=== PATIENT | female | born 1975 | race Caucasian/White ===

== ENCOUNTER 2020-12-20 17:10 | Emergency (ER) | payer BC ==
[2020-12-20] MEDS ORDERED: Ondansetron 4 MG Tab.DIS PO ONE (17:37)
[2020-12-20] MEDS ORDERED: GI Cocktail Oral Solution 30 ML PO ONE (17:37)
--- NOTE | 2020-12-20 17:42 | EDM.PDOC ---
ED HPI GENERAL MEDICAL PROBLEM - General Chief Complaint: Gastrointestinal Problem Stated Complaint: ABDOMINAL PAIN Time Seen by Provider: 12/20/20 17:30 Source of Information: Reports: Patient History Limitations: Reports: No Limitations - History of Present Illness INITIAL COMMENTS - FREE TEXT/NARRATIVE: This patient presents to the emergency department for evaluation of abdominal pain. She reports the pain started approximately 3-1/2 hours ago and is in her epigastric region. She states that she had some pain yesterday that was similar but lasted only about an hour. This is lasted longer and is "sharper" than it was yesterday. She is also complaining of some nausea and had 1 vomiting episode this afternoon. She has not had any diarrhea and states she had a segundo l stool this morning. She has been eating and drinking, she denies fever. She does not have periods and has an IUD in place. ED ROS GENERAL - Review of Systems Review Of Systems: See Below Constitutional: Denies: Fever, Decreased Appetite HEENT: Reports: No Symptoms Respiratory: Reports: No Symptoms Cardiovascular: Reports: No Symptoms GI/Abdominal: Reports: Abdominal Pain, Nausea, Vomiting. Denies: Diarrhea : Reports: No Symptoms Musculoskeletal: Reports: No Symptoms Skin: Reports: No Symptoms Neurological: Reports: No Symptoms ED EXAM, GI/ABD - Physical Exam Exam Limited By: No Limitations General Appearance: Alert, No Apparent Distress Ears: Normal External Exam Nose: Normal Inspection Throat/Mouth: Normal Inspection Head: Atraumatic, Normocephalic Neck: Normal Inspection Respiratory/Chest: No Respiratory Distress, Normal Breath Sounds, No Accessory Muscle Use GI/Abdominal Exam: Normal Bowel Sounds, Soft, Non-Tender, No Organomegaly, No Distention, Hernia (Has had hernia repair in the past, now has a small hernia right upper quadrant) Course - Orders/Labs/Meds Orders: Active Orders 24 hr Category Date Time Status EKG Documentation Completion [RC] ASDIRECTED Care 12/20/20 17:38 Ordered GI Cocktail Med 12/20/20 17:37 Once 30 ml PO ONETIME ONE Ondansetron [Zofran ODT] Med 12/20/20 17:37 Once 4 mg PO ONETIME ONE EKG 12 Lead [EK] Stat Ther 12/20/20 17:37 Ordered Departure - Discharge Information - My Orders Last 24 Hours: My Active Orders 12/20/20 17:37 GI Cocktail 30 ml PO ONETIME ONE Ondansetron [Zofran ODT] 4 mg PO ONETIME ONE EKG 12 Lead [EK] Stat 12/20/20 17:38 EKG Documentation Completion [RC] ASDIRECTED - Assessment/Plan Last 24 Hours: My Active Orders 12/20/20 17:37 GI Cocktail 30 ml PO ONETIME ONE Ondansetron [Zofran ODT] 4 mg PO ONETIME ONE EKG 12 Lead [EK] Stat 12/20/20 17:38 EKG Documentation Completion [RC] ASDIRECTED
[2020-12-20] MEDS ORDERED: Sodium Chloride 0.9% 10 ML Syringe FLUSH PRN (18:23)
[2020-12-20] MEDS ORDERED: Iopamidol 612 MG/ML 100 ML Bottle IV PRN (18:35)
[2020-12-20] MEDS ORDERED: Sodium Chloride 0.9% 50 ML SDV FLUSH SCH (18:45)
[2020-12-20] MEDS ORDERED: Ketorolac 60 MG/2 ML SDV IM ONE (19:13)
[2020-12-20] MEDS ORDERED: Ketorolac 60 MG/2 ML SDV ONE (19:19)
[2020-12-20] MEDS ORDERED: Morphine 4 MG/ML VIAL IVPUSH ONE (19:36)
[2020-12-20] MEDS ORDERED: Sodium Chloride 0.9% 1,000 ML IV ONE (19:36)
[2020-12-20] MEDS ORDERED: Morphine 4 MG/ML VIAL ONE (19:50)
--- NOTE | 2020-12-20 20:15 | EDM.PDOC ---
ED HPI GENERAL MEDICAL PROBLEM - General Chief Complaint: Gastrointestinal Problem Stated Complaint: ABDOMINAL PAIN Time Seen by Provider: 12/20/20 17:30 Source of Information: Reports: Patient History Limitations: Reports: No Limitations - History of Present Illness INITIAL COMMENTS - FREE TEXT/NARRATIVE: This patient presents to the emergency department for evaluation of abdominal pain. She reports the pain started approximately 3-1/2 hours ago and is in her epigastric region. She states that she had some pain yesterday that was similar but lasted only about an hour. This is lasted longer and is "sharper" than it was yesterday. She is also complaining of some nausea and had 1 vomiting episode this afternoon. She has not had any diarrhea and states she had a segundo l stool this morning. She has been eating and drinking, she denies fever. She does not have periods and has an IUD in place. She does have a large umbilical hernia and she has had this repaired in the past, most recently in September 2019. Onset: Today Epigastric Pain Score (Numeric/FACES): 7 - Related Data Allergies Allergy/AdvReac Type Severity Reaction Status Date / Time latex Allergy Anaphylactic Verified 12/20/20 21:48 Shock Home Meds: Home Meds Albuterol [Ventolin HFA] 8 gm INH Q4HR PRN 12/20/20 [History] Fluticasone Propion/Salmeterol [Advair 250-50 Diskus] 1 each IH BID 12/20/20 [History] Montelukast [Singulair] 10 mg PO DAILY 12/20/20 [History] Past Medical History [employer]IN[employer] History: Reports: - Past Surgical History GI Surgical History: Reports: Bariatric Procedure, Hernia, Abdominal Social & Family History - Family History Family Medical History: No Pertinent Family History - Tobacco Use Tobacco Use Status *Q: Never Tobacco User - Caffeine Use Caffeine Use: Reports: Coffee - Recreational Drug Use Recreational Drug Use: No ED ROS GENERAL - Review of Systems Review Of Systems: See Below Constitutional: Reports: Decreased Appetite. Denies: Fever, Weight Loss, Weight Gain HEENT: Reports: No Symptoms Respiratory: Reports: No Symptoms Cardiovascular: Reports: No Symptoms Endocrine: Reports: No Symptoms GI/Abdominal: Reports: Abdominal Pain, Decreased Appetite, Distension, Nausea, Vomiting. Denies: Diarrhea : Reports: No Symptoms Musculoskeletal: Reports: No Symptoms Skin: Reports: No Symptoms Neurological: Reports: No Symptoms ED EXAM, GI/ABD - Physical Exam Exam: See Below Exam Limited By: No Limitations General Appearance: Alert, Severe Distress, Obese Ears: Normal External Exam Nose: Normal Inspection Throat/Mouth: Normal Inspection Head: Atraumatic, Normocephalic Neck: Normal Inspection, Supple, Full Range of Motion Respiratory/Chest: No Respiratory Distress, Lungs Clear, Normal Breath Sounds, No Accessory Muscle Use Cardiovascular: Normal Peripheral Pulses, Regular Rate, Rhythm GI/Abdominal Exam: Soft, No Distention, Tender (Significant tenderness in left upper quadrant; palpable mass approximately 10 x 12 cm which is soft and nondisplaceable.), Other (No bowel sounds in all 4 quadrants.) Extremities: Normal Inspection Neurological: Alert, Oriented Psychiatric: Normal Affect, Anxious ED ABDOMINAL/GI PROCEDURES - Additional/Other Procedure(s) Procedure(s) (Free Text): CT scan was obtained and does reveal a large umbilical hernia with loops of bowel and strands of fat with some omentum. There is possibly a small bowel obstruction as a part of this as well. Course - Vital Signs Last Recorded V/S: Last Vital Signs Temp 37.6 C 12/21/20 04:45 Pulse 87 12/21/20 04:45 Resp 18 12/21/20 04:45 BP 151/93 H 12/21/20 04:45 Pulse Ox 96 12/21/20 04:45 - Orders/Labs/Meds Orders: Active Orders 24 hr Category Date Time Status Iopamidol [Isovue-300 (61%)] Med 12/20/20 18:35 Active 100 ml IV . DIRECTED PRN LORazepam [Ativan] Med 12/20/20 20:23 Active 2 mg IVPUSH Q6H PRN Morphine Med 12/20/20 20:22 Active 6 mg IV Q3H PRN NS + KCl 20mEq/L [Normal Saline with 20 mEq KCl] 1,000 Med 12/20/20 21:45 Active ml IV ASDIRECTED Ondansetron [Zofran] Med 12/20/20 20:22 Active 4 mg IVPUSH Q4H PRN Sodium Chloride 0.9% [Normal Saline] Med 12/20/20 18:45 Active 50 ml FLUSH ONETIME Sodium Chloride 0.9% [Normal Saline] 1,000 ml Med 12/20/20 20:30 Active IV ASDIRECTED Sodium Chloride 0.9% [Normal Saline] 1,000 ml Med 12/20/20 21:45 Active IV ASDIRECTED Sodium Chloride 0.9% [Saline Flush] Med 12/20/20 18:23 Active 10 ml FLUSH ASDIRECTED PRN NG [Nasogastric Orogastric Tube Insertion] [OM.PC] Ot 12/20/20 20:15 Ordered Routine Saline Lock Insert [OM.PC] Stat Ot 12/20/20 18:23 Ordered Medication Orders Sodium Chloride (Normal Saline) 1,000 mls @ 999 mls/hr IV ASDIRECTED [facility] Last Admin: 12/20/20 21:37 Dose: 999 mls/hr Documented by: DIRK Sodium Chloride (Normal Saline) 1,000 mls @ 1,000 mls/hr IV ASDIRECTED [facility] Last Admin: 12/21/20 05:46 Dose: 1,000 mls/hr Documented by: DIRK Potassium Chloride/Sodium Chloride (Normal Saline With 20 Meq Kcl) 1,000 mls @ 150 mls/hr IV ASDIRECTED [facility] Last Admin: 12/20/20 22:52 Dose: 150 mls/hr Documented by: DIRK Iopamidol (Iopamidol 612 Mg/Ml 100 Ml Bottle) 100 ml IV . DIRECTED PRN PRN Reason: RADIOLOGY EXAM Stop: 12/21/20 18:36 Lorazepam (Lorazepam 2 Mg/Ml Sdv) 2 mg IVPUSH Q6H PRN PRN Reason: Anxiety Last Admin: 12/20/20 21:33 Dose: 2 mg Documented by: DIRK Morphine Sulfate (Morphine 10 Mg/Ml Sdv) 6 mg IV Q3H PRN PRN Reason: Pain Last Admin: 12/21/20 08:20 Dose: 6 mg Documented by: Admin: 12/21/20 04:27 Dose: 6 mg Documented by: Admin: 12/21/20 01:07 Dose: 4 mg Documented by: Admin: 12/20/20 21:03 Dose: 6 mg Documented by: DIRK Ondansetron HCl (Ondansetron 4 Mg/2 Ml Sdv) 4 mg IVPUSH Q4H PRN PRN Reason: Nausea/Vomiting Last Admin: 12/21/20 02:37 Dose: 4 mg Documented by: Admin: 12/20/20 21:10 Dose: 4 mg Documented by: DIRK Sodium Chloride (Sodium Chloride 0.9% 10 Ml Syringe) 10 ml FLUSH ASDIRECTED PRN PRN Reason: Keep Vein Open Sodium Chloride (Sodium Chloride 0.9% 50 Ml Sdv) 50 ml FLUSH ONETIME JIGNESH Labs: Laboratory Tests 12/20/20 12/20/20 12/20/20 Range/Units 20:07 21:00 21:00 WBC 18.1 H (4.0-11.0) K/uL RBC 5.20 (3.80-5.80) M/uL Hgb 14.3 (11.5-16.5) g/dL Hct 43.3 (37.0-47.0) % MCV 83 (76-96) fL MCH 27.5 (27.0-32.0) pg MCHC 33.0 (31.0-35.0) g/dL RDW 16.0 (11.0-16.0) % Plt Count 285 (150-500) K/uL MPV 10.1 H (6.0-10.0) fL Neut % (Auto) 92.1 H (45.0-70.0) % Lymph % (Auto) 5.4 L (20.0-40.0) % [place] % (Auto) 2.4 L (3.0-10.0) % Eos % (Auto) 0.0 L (1.0-5.0) % Baso % (Auto) 0.1 (0.0-0.5) % Neut # (Auto) 16.71 H (2.00-7.50) K/uL Lymph # (Auto) 0.98 L (1.50-4.00) K/uL [place] # (Auto) 0.43 (0.20-0.80) K/uL Eos # (Auto) 0.00 L (0.04-0.40) K/uL Baso # (Auto) 0.01 L (0.02-0.10) K/uL Sodium 138 (136-145) mmol/L Potassium 4.5 (3.5-5.1) mmol/L Chloride 104 (98-107) mmol/L Carbon Dioxide 27.1 (21.0-32.0) mmol/L Anion Gap 11.4 (5.0-15.0) mmol/L BUN 10 (8-26) mg/dL Creatinine 0.83 (0.55-1.02) mg/dL Est Cr Clr Drug Dosing 72.36 mL/min Estimated GFR (MDRD) > 60 (>60) MLS/MIN BUN/Creatinine Ratio 12.0 (6-25) Glucose 150 H (74-100) mg/dL Calcium 8.5 (8.5-10.1) mg/dL Total Bilirubin 0.3 (0.0-1.0) mg/dL AST 21 (15-37) U/L ALT 31 (12-78) U/L Alkaline Phosphatase 125 H (46-116) U/L Total Protein 7.3 (6.4-8.2) g/dL Albumin 3.7 (3.4-5.0) g/dL Globulin 3.6 (2.2-4.2) g/dL Albumin/Globulin Ratio 1.0 (0.8-2.0) SARS-CoV-2 RNA (LANDY) Negative (NEGATIVE) 12/21/20 Range/Units 09:45 WBC 14.1 H D (4.0-11.0) K/uL RBC 4.96 (3.80-5.80) M/uL Hgb 13.7 (11.5-16.5) g/dL Hct 41.8 (37.0-47.0) % MCV 84 (76-96) fL MCH 27.6 (27.0-32.0) pg MCHC 32.8 (31.0-35.0) g/dL RDW 16.4 H (11.0-16.0) % Plt Count 274 (150-500) K/uL MPV 10.0 (6.0-10.0) fL Neut % (Auto) 83.9 H (45.0-70.0) % Lymph % (Auto) 7.4 L (20.0-40.0) % [place] % (Auto) 8.5 (3.0-10.0) % Eos % (Auto) 0.1 L (1.0-5.0) % Baso % (Auto) 0.1 (0.0-0.5) % Neut # (Auto) 11.84 H (2.00-7.50) K/uL Lymph # (Auto) 1.04 L (1.50-4.00) K/uL [place] # (Auto) 1.20 H (0.20-0.80) K/uL Eos # (Auto) 0.01 L (0.04-0.40) K/uL Baso # (Auto) 0.01 L (0.02-0.10) K/uL Sodium (136-145) mmol/L Potassium (3.5-5.1) mmol/L Chloride (98-107) mmol/L Carbon Dioxide (21.0-32.0) mmol/L Anion Gap (5.0-15.0) mmol/L BUN (8-26) mg/dL Creatinine (0.55-1.02) mg/dL Est Cr Clr Drug Dosing mL/min Estimated GFR (MDRD) (>60) MLS/MIN BUN/Creatinine Ratio (6-25) Glucose (74-100) mg/dL Calcium (8.5-10.1) mg/dL Total Bilirubin (0.0-1.0) mg/dL AST (15-37) U/L ALT (12-78) U/L Alkaline Phosphatase (46-116) U/L Total Protein (6.4-8.2) g/dL Albumin (3.4-5.0) g/dL Globulin (2.2-4.2) g/dL Albumin/Globulin Ratio (0.8-2.0) SARS-CoV-2 RNA (LANDY) (NEGATIVE) Meds: Medications Generic Name Dose Route Start Last Admin Trade Name Freq PRN Reason Stop Dose Admin Sodium Chloride 1,000 mls @ 999 mls/hr 12/20/20 20:30 12/20/20 21:37 Normal Saline IV 999 mls/hr ASDIRECTED JIGNESH Administration Sodium Chloride 1,000 mls @ 1,000 mls/hr 12/20/20 21:45 12/21/20 05:46 Normal Saline IV 1,000 mls/hr ASDIRECTED JIGNESH Administration Potassium Chloride/Sodium Chloride 1,000 mls @ 150 mls/hr 12/20/20 21:45 12/20/20 22:52 Normal Saline With 20 Meq Kcl IV 150 mls/hr ASDIRECTED JIGNESH Administration Iopamidol 100 ml 12/20/20 18:35 Iopamidol 612 Mg/Ml 100 Ml Bottle IV 12/21/20 18:36 . DIRECTED PRN RADIOLOGY EXAM Lorazepam 2 mg 12/20/20 20:23 12/20/20 21:33 Lorazepam 2 Mg/Ml Sdv IVPUSH 2 mg Q6H PRN Administration Anxiety Morphine Sulfate 6 mg 12/20/20 20:22 12/21/20 08:20 Morphine 10 Mg/Ml Sdv IV 6 mg Q3H PRN Administration Pain Ondansetron HCl 4 mg 12/20/20 20:22 12/21/20 02:37 Ondansetron 4 Mg/2 Ml Sdv IVPUSH 4 mg Q4H PRN Administration Nausea/Vomiting Sodium Chloride 10 ml 12/20/20 18:23 Sodium Chloride 0.9% 10 Ml Syringe FLUSH ASDIRECTED PRN Keep Vein Open Sodium Chloride 50 ml 12/20/20 18:45 Sodium Chloride 0.9% 50 Ml Sdv FLUSH ONETIME JIGNESH Discontinued Medications Generic Name Dose Route Start Last Admin Trade Name Freq PRN Reason Stop Dose Admin Al Hydroxide/Mg Hydroxide 30 ml 12/20/20 17:37 12/20/20 17:40 Gi Cocktail Oral Solution 30 Ml PO 12/20/20 17:38 30 ml ONETIME ONE Administration Sodium Chloride 1,000 mls @ 999 mls/hr 12/20/20 19:36 12/20/20 19:41 Normal Saline IV 12/20/20 20:36 999 mls/hr ASDIRECTED ONE Administration Ketorolac Tromethamine Confirm 12/20/20 19:19 12/20/20 19:49 Ketorolac 60 Mg/2 Ml Sdv Administered 12/20/20 19:20 Not Given Dose 60 mg .ROUTE .STK-MED ONE Ketorolac Tromethamine 60 mg 12/20/20 19:13 12/20/20 19:10 Ketorolac 60 Mg/2 Ml Sdv IM 12/20/20 19:14 60 mg ONETIME ONE Administration Lorazepam Confirm 12/20/20 21:42 12/20/20 21:37 Lorazepam 2 Mg/Ml Sdv Administered 12/20/20 21:43 Not Given Dose 2 mg .ROUTE .STK-MED ONE Morphine Sulfate 4 mg 12/20/20 19:36 12/20/20 19:43 Morphine 4 Mg/Ml Vial IVPUSH 12/20/20 19:37 4 mg ONETIME ONE Administration Morphine Sulfate Confirm 12/20/20 19:50 12/20/20 19:49 Morphine 4 Mg/Ml Vial Administered 12/20/20 19:51 Not Given Dose 4 mg .ROUTE .STK-MED ONE Morphine Sulfate Confirm 12/20/20 21:12 12/20/20 21:25 Morphine 10 Mg/Ml Sdv Administered 12/20/20 21:13 Not Given Dose 10 mg .ROUTE .STK-MED ONE Ondansetron HCl 4 mg 12/20/20 17:37 12/20/20 17:43 Ondansetron 4 Mg Tab.Dis PO 12/20/20 17:38 4 mg ONETIME ONE Administration Ondansetron HCl Confirm 12/20/20 21:20 12/20/20 21:15 Ondansetron 4 Mg/2 Ml Sdv Administered 12/20/20 21:21 Not Given Dose 4 mg .ROUTE .STK-MED ONE - Re-Assessments/Exams Free Text/Narrative Re-Assessment/Exam: 12/20/20 20:13 This patient presents to the ER with a sudden onset of abdominal pain. She does have a history of hernia and there does appear to be a large incarcerated umbilical hernia. I did contact [facility] in [place] where the surgeon is that repaired her hernia in 2019. I spoke with his partner Dr. Solis at great length regarding the management of this patient. He suggested we manage her here using a conservative approach including fluid resuscitation, NG drainage and decompression, and pain management as well as serial abdominal exams. Free Text/Narrative Re-Assessment/Exam: 12/21/20 09:37 Patient continues to state her abdominal pain is approximately 6-7 out of 10. Bowel sounds are absent and she remains mildly distended. Hernia area is palpable mostly in the right upper quadrant and is approximately 10 x 12 cm. NG tube is draining small amounts of frothy clear secretions. Her pain is being controlled fairly well with morphine which she has been getting regularly. A repeat CBC is pending. Free Text/Narrative Re-Assessment/Exam: 12/21/20 12:41 Patient status unchanged and continues to complain of abdominal pain at 6-7 out of 10. I just spoke with Dr. Solis at [facility] who did agree to accept this patient in transfer. Arrangements were made for her transfer to their facility by helicopter. The patient was stable at the time she was transferred by [facility] [employer] [facility]. 12/21/20 12:56 Departure - Departure Time of Disposition: 13:45 Disposition: DC/Tfer to [facility] 02 Condition: Fair Clinical Impression: Hernia, Small bowel obstruction - Discharge Information *PRESCRIPTION DRUG MONITORING PROGRAM REVIEWED*: No *COPY OF PRESCRIPTION DRUG MONITORING REPORT IN PATIENT TASHI: No Referrals: PCP,None [Primary Care Provider] - Forms: ED Department Discharge Sepsis Event Note (ED) - Focused Exam Vital Signs: Vital Signs Temp Pulse Resp BP Pulse Ox 12/21/20 04:45 37.6 C 87 18 151/93 H 96 12/21/20 02:51 37.4 C 12/21/20 01:06 37.3 C 85 16 172/96 H 95 - My Orders Last 24 Hours: My Active Orders 12/20/20 18:23 Sodium Chloride 0.9% [Saline Flush] 10 ml FLUSH ASDIRECTED PRN Saline Lock Insert [OM.PC] Stat 12/20/20 18:35 Iopamidol [Isovue-300 (61%)] 100 ml IV . DIRECTED PRN 12/20/20 18:45 Sodium Chloride 0.9% [Normal Saline] 50 ml FLUSH ONETIME 12/20/20 20:15 NG [Nasogastric Orogastric Tube Insertion] [OM.PC] Routine 12/20/20 20:22 Morphine 6 mg IV Q3H PRN Ondansetron [Zofran] 4 mg IVPUSH Q4H PRN 12/20/20 20:23 LORazepam [Ativan] 2 mg IVPUSH Q6H PRN 12/20/20 20:30 Sodium Chloride 0.9% [Normal Saline] 1,000 ml IV ASDIRECTED 12/20/20 21:45 NS + KCl 20mEq/L [Normal Saline with 20 mEq KCl] 1,000 ml IV ASDIRECTED Sodium Chloride 0.9% [Normal Saline] 1,000 ml IV ASDIRECTED - Assessment/Plan Last 24 Hours: My Active Orders 12/20/20 18:23 Sodium Chloride 0.9% [Saline Flush] 10 ml FLUSH ASDIRECTED PRN Saline Lock Insert [OM.PC] Stat 12/20/20 18:35 Iopamidol [Isovue-300 (61%)] 100 ml IV . DIRECTED PRN 12/20/20 18:45 Sodium Chloride 0.9% [Normal Saline] 50 ml FLUSH ONETIME 12/20/20 20:15 NG [Nasogastric Orogastric Tube Insertion] [OM.PC] Routine 12/20/20 20:22 Morphine 6 mg IV Q3H PRN Ondansetron [Zofran] 4 mg IVPUSH Q4H PRN 12/20/20 20:23 LORazepam [Ativan] 2 mg IVPUSH Q6H PRN 12/20/20 20:30 Sodium Chloride 0.9% [Normal Saline] 1,000 ml IV ASDIRECTED 12/20/20 21:45 NS + KCl 20mEq/L [Normal Saline with 20 mEq KCl] 1,000 ml IV ASDIRECTED Sodium Chloride 0.9% [Normal Saline] 1,000 ml IV ASDIRECTED
[2020-12-20] MEDS ORDERED: LORazepam 2 MG/ML SDV IVPUSH PRN (20:23)
[2020-12-20] MEDS ORDERED: Sodium Chloride 0.9% 1,000 ML IV SCH ×2 (20:30→21:45)
[2020-12-20] MEDS: Morphine 10 MG/ML SDV IV PRN (21:03)
[2020-12-20] MEDS: Ondansetron 4 MG/2 ML SDV IVPUSH PRN (21:10)
[2020-12-20] MEDS ORDERED: Morphine 10 MG/ML SDV ONE (21:12)
[2020-12-20] MEDS ORDERED: Ondansetron 4 MG/2 ML SDV ONE (21:20)
[2020-12-20] MEDS ORDERED: LORazepam 2 MG/ML SDV ONE (21:42)
[2020-12-20] MEDS ORDERED: NS + KCl 20mEq/L 1,000 ML IV SCH (21:45)
[2020-12-21] MEDS: Morphine 10 MG/ML SDV IV PRN ×4 (01:07→13:04)
[2020-12-21] MEDS: Ondansetron 4 MG/2 ML SDV IVPUSH PRN ×2 (02:37→13:06)
--- NOTE | 2020-12-21 11:55 | CT ---
DATE OF SERVICE: 12/20/2020 CLINICAL DATA: Pain. UNENHANCED ABDOMEN AND PELVIS: Multislice acquisition through the abdomen and pelvis without IV or oral contrast was performed. No priors. The lung bases are clear. The liver is normal size with homogeneous attenuation. No focal hepatic lesions. The patient is status post cholecystectomy. The spleen appears normal. The pancreas appears normal. The right and left adrenals appear normal. The right and left kidneys appear normal. No nephrocalcinosis or nephrolithiasis. No hydronephrosis or hydroureter. The bladder is fluid filled. It appears normal. There is an IUD noted within the uterus. No evidence of appendicitis. No free air. No free fluid. No adenopathy. No aortic aneurysm. There is a very large umbilical hernia containing multiple loops of bowel and omental fat. There is increased signal of the fat within the hernia sac suggesting the possibility of incarceration. There are scattered air-fluid levels within the small bowel proximal to this suggesting an early or partial obstruction. No other significant findings. The patient's healthcare provider was notified of the findings by telephone and by virtual radiologic preliminary radiology report. [id number] [facility]
== END 2020-12-21 14:00 ==
LOC: LB.ED 17:10
DX: K42.0 Umbilical hernia with obstruction, without gangrene (principal); Z91.040 Latex allergy status
CPT/HCPCS: 36415; 74176; 80053; 85025; 87635; 93005; 96372; 96374; 96375; 96376; 99285; A9270; J1885; J2060; J2270; J2405; J3480; J7030; 99284; U0002